=== PATIENT | female | born 1975 | race Caucasian/White ===

== ENCOUNTER 2024-08-23 15:40 | Emergency (ER) | payer BC, SELFPAY ==
[2024-08-23 15:57] VITALS: BP 122/67
[2024-08-23 16:27] LABS: % Basophils 0.6 % (0-2); % Eosinophils 3.3 % (0-6); % Immature Granulocytes 0.2 % (0-0.5); % Lymphocytes 36.7 % (20.5-51.1); % Monocytes 11.1 % (1.7-9.3); % Neutrophils 48.1 % (42.2-75.2); Absolute Eosinophils 0.2 10^3/uL (0-0.7); Absolute Monocytes 0.6 10^3/uL (0.1-0.6); Absolute Neutrophils 2.6 10^3/uL (1.4-6.5); Hematocrit 35.9 % (37.0-47.0); Hemoglobin 12.5 g/dL (12.0-16.0); Mean Corp Hgb Conc. 34.8 g/dL (33.0-37.0); Mean Corpuscular Hgb 33.1 pg (27.0-31.0); Mean Platelet Volume 10.2 fL (7.4-10.4); Nucleated Red Blood Cells % 0 %; Platelet Count 254 10^3/uL (130-400); Red Blood Cell Count 3.78 10^6/uL (4.20-5.40); Red Cell Dist. Width 12.3 % (11.5-14.5); White Blood Cell Count 5.4 10^3/uL (4.8-10.8)
[2024-08-23 16:40] LABS: ALT (SGPT) 22 U/L (0-35); AST (SGOT) 24 U/L (14-36); Albumin 4.6 g/dl (3.5-5.0); Alkaline Phosphatase 42 U/L (38-126); Blood Urea Nitrogen 20 mg/dl (7-17); Calcium 9.5 mg/dl (8.4-10.2); Carbon Dioxide 26 mmol/L (22-30); Chloride 103 mmol/L (98-107); Glucose 151 mg/dl (70-99); Sodium 141 mmol/L (135-145); Total Bilirubin 0.3 mg/dl (0.2-1.3); Total Protein 7.3 g/dl (6.3-8.2); eGFR > 60.00
[2024-08-23 16:51] LABS: Troponin I < 0.012 ng/ml
[2024-08-23 18:24] VITALS: BP 133/74; BMI 22.5
--- NOTE | 2024-08-23 18:48 | ED.GENMED ---
History of Present Illness
General
Chief Complaint: Chest Problem
Source: patient
Exam Limitations: none
Time Seen by Provider: 08/23/24 18:21
History of Present Illness
History of Present Illness:
49 year old female presents with chest pain onset last evening that is described as a pressure. This is made worse with breathing and exertion. No fever but feels overall not herself and achy. Recent flight here from [place]. Otherwise healthy.
No family history of CAD. No calf pain or leg swelling. No other complaints.
Phy Exam
Physical Exam
Physical Exam:
General: Well appearing female NAD
HEENT: NC/AT
Heart: RRR, no murmurs
Lungs; CTA no wheeze
Ext: no cyanosis or edema
Skin: warm, no rash
Abd: soft, nontender
Course
Orders/Labs/Results
Orders:
Orders
08/23/24 15:44
Electrocardiogram (*1) Urgent
Reason for Study: Chest Pain
EKG- Treatment ONCE
08/23/24 16:08
Complete Blood Count/With Diff Urgent
Comprehensive Metabolic Panel Urgent
Troponin I Urgent
08/23/24 18:28
CXR2 [CR Chest - 2 Views ] Urgent
Comment:
Reason For Exam: chest pain
08/23/24 19:39
COVID-19 Antigen Urgent
Source: Nasal Swab
D-Dimer Urgent
Troponin I Urgent
Influenza A+B Rapid Molecular Urgent
YON Source: Nasal Swab
Specimen Description:
Abnormal Lab Results
08/23/24
16:08
RBC 3.78 L 10^6/uL
(4.20-5.40)
Hct 35.9 L %
(37.0-47.0)
MCH 33.1 H pg
(27.0-31.0)
Monocytes % 11.1 H %
(1.7-9.3)
BUN 20 H mg/dl
(7-17)
Glucose 151 H mg/dl
(70-99)
08/23/24 16:08
08/23/24 16:08
Vital Signs
Initial and Last Documented VS:
Initial Vital Signs
Temp Pulse Resp BP Pulse Ox
98 F 67 18 122/67 100
08/23/24 15:57 08/23/24 15:57 08/23/24 15:57 08/23/24 15:57 08/23/24 15:57
Last Documented Vital Signs
Temp Pulse Resp BP Pulse Ox
98 F 79 17 132/68 99
08/23/24 15:57 08/23/24 19:45 08/23/24 19:45 08/23/24 19:00 08/23/24 18:45
MDM/Problems Addressed
Differential Diagnosis Includes:
Acute chest pain. Differential: ACS, PE, pneumothorax, viral ilness, MSK pain
Initial trop negative, repeat and d-dimer pending given recent flight although vitals would not suggest PE.
Check covid/flu
Imaging pending d-dimer result.
*Critical Care Note
Total Time (30-74mins, 75-104mins- exclusive of procedures): Not Applicable
Update Note
Update Note:
Workup here shows normal troponin x 2 negative D-dimer. Chest x-ray was personally reviewed and is negative and clear. Labs reviewed without significant finding. Suspect chest discomfort is not cardiac or pulmonary. Do not suspect dissection.
There is no arrhythmias noted on monitor. No indication for admission. Stable for discharge. She plans on following up closely with her family doctor
ED Attending Note
-
Portions of this chart may have been created with voice recognition software.� Occasional wrong word or��sound alike� substitutions may have occurred due to the inherent limitations of voice recognition software.
Discharge Plan
Departure
Patient Disposition: Home (Routine Discharge)
Date of Disposition: 08/23/24
Time of Disposition: 20:46
Patient with high blood pressure during this ER visit?: No
Discharge Problem:
Chest pain
Instructions: Chest Pain PCP Follow Up
Referrals:
NONE,* [Family Provider] -
Activity Restrictions/Additional Instructions:
Please return here for any worsening symptoms. Follow-up with your family doctor otherwise
Interventions
Interventions:
*Risk Screen - Suicide Last Done: 08/23/24 15:57
*General Assessment Last Done: 08/23/24 18:25
*Neglect/Abuse Screening Last Done: 08/23/24 15:57
ED- Fall Risk Assessment Last Done: 08/23/24 18:25
*ED COVID-19 Vaccine History Last Done: 08/23/24 18:25
ED- Cardiac Assessment Last Done: 08/23/24 18:26
ED- Pulmonary Assessment Last Done: 08/23/24 18:26
Discharge Date and Time
Print Language: NICARAGU[place]
[2024-08-23 19:00] VITALS: BP 132/68
[2024-08-23 19:59] LABS: D-Dimer 0.29 ug/mlFEU (0.00-0.50)
[2024-08-23 20:02] LABS: COVID-19 Antigen Negative (Negative)
[2024-08-23 20:11] LABS: Troponin I < 0.012 ng/ml
[2024-08-23 21:45] VITALS: BP 142/80
== END 2024-08-23 21:54 | disposition home or self-care (01) ==
LOC: EMR 15:40
PROVIDERS: Emergency Medicine; Physician Assistant; EMERGENCY PHYSICIAN Student in an Organized Health Care Education/Training Program
DX: R07.89 Other chest pain (principal); Z11.52 Encounter for screening for COVID-19
CPT/HCPCS: 99285; 71046; 80053; 84484; 85025; 85379; 87502; 87811; 93005